=== PATIENT | female | born 1965 | race American Indian/Alaskan Native ===

== ENCOUNTER 2021-08-11 10:15 | Outpatient (CLI) | payer OTHER ==
--- NOTE | 2021-08-11 11:31 | XRay Report ---
BILATERAL KNEES HISTORY: Pain. COMPARISON: None. TECHNIQUE: 3 views of both knees were obtained. FINDINGS: Bones: No acute fracture or dislocation. Moderate osteoarthritic change within the left medial kyung rtment. Moderate to severe tricompartmental osteoarthritic changes within the right knee, worse withi n the medial compartment. Soft tissues: No significant abnormality. Additional findings: None. IMPRESSION: No evidence of acute osseous injury. Moderate to severe tricompartmental osteoarthritic changes within the right knee, worse within the me dial compartment. Moderate medial compartment osteoarthritic change within the left knee. Signer Name: Carmelo Briceno MD Signed: 08/11/2021 11:26 AM Workstation Name: [id number]
--- NOTE | 2021-08-11 11:43 | XRay Report ---
BILATERAL HANDS HISTORY: Bilateral hand pain. COMPARISON: None. TECHNIQUE: 3 views of both hands were obtained. FINDINGS: Bones: No fracture or dislocation. Moderate osteoarthritic changes, primarily at the first interphal angeal joints bilaterally. Joint spaces: Maintained. Soft tissues: No significant abnormality. Additional findings: None. IMPRESSION: No evidence of acute osseous injury. Moderate osteoarthritic changes, primarily at the first interphalangeal joints bilaterally. Signer Name: Carmelo Briceno MD Signed: 08/11/2021 11:38 AM Workstation Name: [id number]
== END 2021-08-11 10:16 | disposition home or self-care (01) ==
LOC: XRAY 10:15
PROVIDERS: ATTEND Internal Medicine
DX: M19.042 Primary osteoarthritis, left hand (principal); M19.041 Primary osteoarthritis, right hand; M17.0 Bilateral primary osteoarthritis of knee

== ENCOUNTER 2021-11-11 23:39 | Emergency (ER) | payer SELFPAY ==
--- NOTE | 2021-11-12 04:22 | XRay Report ---
CHEST 2 VIEWS INDICATION / CLINICAL INFORMATION: Chest Pain. COMPARISON: None available. FINDINGS: SUPPORT DEVICES: None. HEART / MEDIASTINUM: No significant abnormality. LUNGS / PLEURA: No significant pulmonary or pleural abnormality. No pneumothorax. ADDITIONAL FINDINGS: No significant additional findings. IMPRESSION: 1. No active cardiopulmonary disease. Signer Name: Serge Montejo II, MD Signed: 11/12/2021 4:17 AM Workstation Name: [id number]
[2021-11-12] MEDS ORDERED: cloNIDine 0.2 MG TAB PO ONE (04:31)
[2021-11-12] MEDS ORDERED: oxyCODONE /ACETAMINOPHEN 5-325MG TAB PO ONE (04:34)
[2021-11-12 04:36] LABS: Basophils # (Auto) 0.1 K/mm3 (0.0-0.1); Basophils % (Auto) 1.1 % (0.0-1.8); Eosinophils # (Auto) 0.2 K/mm3 (0.0-0.4); Eosinophils % (Auto) 2.5 % (0.0-4.3); Hematocrit 44.9 % (30.3-42.9); Hemoglobin 14.4 gm/dl (10.1-14.3); Lymphocytes # (Auto) 2.5 K/mm3 (1.2-5.4); Lymphocytes % (Auto) 36.2 % (13.4-35.0); Mean Corpuscular HGB Conc 32 % (30-34); Mean Corpuscular Volume 93 fl (79-97); Monocytes # (Auto) 0.8 K/mm3 (0.0-0.8); Monocytes % (Auto) 11.8 % (0.0-7.3); Platelet Count 305 K/mm3 (140-440); Red Blood Count 4.82 M/mm3 (3.65-5.03); Red Cell Distribution Width 16.4 % (13.2-15.2)
[2021-11-12 04:57] LABS: BUN/Creatinine Ratio 18; Blood Urea Nitrogen 14 mg/dL (7-17); Calcium 9.3 mg/dL (8.4-10.2); Hemolysis Index 2
[2021-11-12 05:15] VITALS: BP 190/91
--- NOTE | 2021-11-12 05:22 | Emergency Department Report ---
ED Chest Pain HPI - General Chief Complaint: Neck Pain/Injury Stated Complaint: RT SIDE NECK/ARM PAIN/TINGLING NUMBNESS Time Seen by Provider: 11/12/21 03:29 Source: patient Mode of arrival: Ambulatory Limitations: No Limitations - History of Present Illness Initial Comments: 56-year-old female with hypertension and elevated BMI presents emerge department complaining of having right-sided arm pain with tingling up and down on the radiates across to the neck and comes down to the upper chest region. She reports no exertional dyspnea, no hemoptysis no hematuria hematochezia, no palpitations, no fever, chills, sweats. No headache. Blood pressure was found to be elevated in the 200s over the 100s. She reports no vomiting, no diarrhea, no loss of alcohol of bowel bladder. No issues with grasping or gripping with the right upper extremity -: Gradual Pain Radiation: none Severity: mild Severity scale (0 -10): 9 Quality: other (Tingling) Consistency: constant Improves With: nothing Worsens With: movement (Movement of neck and arms), other re: nausea - Related Data Previous Rx's Medication Instructions Recorded Last Taken Type Amlodipine Besylate [Norvasc] 5 mg PO DAILY #30 11/12/21 Unknown Rx Ketorolac [Toradol] 10 mg PO Q6H PRN #15 tablet 11/12/21 Unknown Rx methOCARBAMOL [Robaxin] 750 mg PO Q8H PRN #21 tablet 11/12/21 Unknown Rx Allergies Allergy/AdvReac Type Severity Reaction Status Date / Time No Known Allergies Allergy Verified 11/12/21 03:46 Heart Score - HEART Score History: Slightly suspicious EKG: Normal Age: 45-65 Risk factors: 1-2 risk factors Troponin: < normal limit HEART Score: 2 - EKG Read Time Time EKG Completed: 05:16 EKG Read Time: 05:18 ED Review of Systems ROS: Stated complaint: RT SIDE NECK/ARM PAIN/TINGLING NUMBNESS Other details as noted in HPI Comment: All other systems reviewed and negative ED Past Medical Hx - Medications Home Medications: Home Medications Medication Instructions Recorded Confirmed Last Taken Type Amlodipine Besylate [Norvasc] 5 mg PO DAILY #30 11/12/21 Unknown Rx Ketorolac [Toradol] 10 mg PO Q6H PRN #15 tablet 11/12/21 Unknown Rx methOCARBAMOL [Robaxin] 750 mg PO Q8H PRN #21 tablet 11/12/21 Unknown Rx ED Physical Exam - General Limitations: No Limitations General appearance: alert, in no apparent distress - Head Head exam: Present: atraumatic, normocephalic - Eye Eye exam: Present: normal appearance, PERRL Pupils: Present: normal accommodation - ENT ENT exam: Present: mucous membranes moist, TM's normal bilaterally - Neck Neck exam: Present: normal inspection, tenderness (Tenderness in the right trapezius region with some spasm noted. Full range of motion. Spurling's test is negative.), full ROM - Respiratory Respiratory exam: Present: normal lung sounds bilaterally. Absent: respiratory distress - Cardiovascular Cardiovascular Exam: Present: regular rate, normal rhythm. Absent: systolic murmur, diastolic murmur, rubs, gallop - GI/Abdominal GI/Abdominal exam: Present: soft, normal bowel sounds - Extremities Exam Extremities exam: Present: normal inspection, full ROM (1124 range of motion pulses 2+ normal sensation pulses 2+ cap refills are brisk DTRs are intact.), normal capillary refill - Back Exam Back exam: Present: normal inspection. Absent: CVA tenderness (R), CVA tenderness (L) - Neurological Exam Neurological exam: Present: alert, oriented X3, CN II-XII intact, normal gait, reflexes normal - Psychiatric Psychiatric exam: Present: normal affect, normal mood. Absent: flat affect, manic, homicidal ideation, suicidal ideation - Skin Skin exam: Present: warm, dry, intact, normal color. Absent: rash ED Course Vital Signs 11/11/21 11/12/21 11/12/21 23:44 04:10 05:13 Temperature 98.4 F Pulse Rate 96 H 86 83 Respiratory 16 16 Rate Blood Pressure 213/119 218/123 190/91 O2 Sat by Pulse 95 97 Oximetry SASCHA score - Sascha Score Age > 65: (0) No Aspirin use within the Past 7 Days: (0) No 3 or more CAD Risk Factors: (0) No 2 or more Angina events in past 24 hrs: (0) No Known CAD with more than 50% Stenosis: (0) No Elevated Cardiac Markers: (0) No ST Deviation Greater than 0.5mm: (0) No SASCHA Score: 0 ED Medical Decision Making - Lab Data Result diagrams: 11/12/21 04:18 11/12/21 04:18 - EKG Data EKG shows normal: sinus rhythm Rate: normal - EKG Data Interpretation: normal EKG 11/12/21 05:22 Sinus rhythm 70 no J-point elevation no ST segment depression no ventricular arrhythmia EKG time is 516 - Radiology Data Radiology results: report reviewed [facility] [address] [place] [address] XRay Report Signed Patient: DELILAH MARAVILLA MR#: [id number] : 1965 Acct:[id number] Age/Sex: 56 / F ADM Date: 11/11/21 Loc: ED Attending Dr: Ordering Physician: CIARA ESTEBAN Date of Service: 11/12/21 Procedure(s): XR chest routine 2V Accession Number(s): [id number] cc: CIARA ESTEBAN Fluoro Time In Minutes: CHEST 2 VIEWS INDICATION / CLINICAL INFORMATION: Chest Pain. COMPARISON: None available. FINDINGS: SUPPORT DEVICES: None. HEART / MEDIASTINUM: No significant abnormality. LUNGS / PLEURA: No significant pulmonary or pleural abnormality. No pneumothorax. ADDITIONAL FINDINGS: No significant additional findings. IMPRESSION: 1. No active cardiopulmonary disease. Signer Name: Delaney Booth II, MD Signed: 11/12/2021 4:17 AM Workstation Name: [id number] Transcribed By: VINCENT Dictated By: DELANEY BOOTH II, MD Electronically Authenticated By: DELANEY BOOTH II, MD Signed Date/Time: 11/12/21416 DD/ 5 TD/TT: Print Cancel - Medical Decision Making This patient presents with chest pain that is very unlikely angina or acute coronary syndrome. The emergency department evaluation has not identified any cause for suspicion that this chest pain has a cardiac etiology. Based on their history, EKG (which showed no evidence of ischemia or infarction) and imaging, in addition to the patient's physical exam, I see no evidence at this time for a malignant etiology for the patient's chest pain. There is no acute evidence for pulmonary embolus, acute myocardial infarction, pneumothorax, Boerhaeve syndrome, cardiac tamponade, thoracic artery dissection, or any other emergent cardiac, pulmonary or aortic pathology. Given the low pre-test probability for cardiac etiology of chest pain and the absence of any sign of ischemia or infarction, discharge for outpatient follow-up and further evaluation is reasonable. I have explained to the patient that even though a cardiac problem is very unlikely, follow-up and further testing is required to reduce further the alre trent small uncertainty that exists. Other life-threatening diagnoses have been considered. The patient understands the need to return immediately if their symptoms worsen or they develop any new symptoms, and not to engage in any significant exertional activity until follow-up is obtained. Presents to the emergency department complaining of high blood pressure. Patient is otherwise asymptomatic without confusion, chest pain, hematuria, or SOB. BP today is 219/124 and improved to 190/191 urrently on medication Doubt CV, AMI, heart failure, renal infarction or failure or other end organ damage. Disposition:Discussed with patient their elevated blood pressure and need for close outpatient management of their hypertension. Will provide a prescription for the patients previous antihypertensive medication and arrange for the patient to follow up in a primary care clinic Disposition: Discussed with patient their elevated blood pressure and need for close outpatient management of their hypertension. Will provide a prescription for amlodipine 5mg PO daily and arrange for the patient to follow up in a primary care clinic Critical care attestation.: If time is entered above; I have spent that time in minutes in the direct care of this critically ill patient, excluding procedure time. ED Disposition Clinical Impression: Neck pain, Chest pain, Neuropathy of right upper extremity, Hypertension Disposition: 01 HOME / SELF CARE / HOMELESS Is pt being admited?: No Does the pt Need Aspirin: No Condition: Stable Instructions: Nonspecific Chest Pain, Adult, Peripheral Neuropathy, Hypertension, Adult, [id number], Preventing Hypertension, Managing Your Hypertension, Hypertension (ED) Additional Instructions: He has been started on a low-dose blood pressure medication to help start the control process of your hypertension. This medication along with all or most likely not completely normalize your blood pressure it is imperative you follow- up with the cardiology or primary care provider to further manage this hypertensive issue Prescriptions: Amlodipine Besylate [Norvasc] 5 mg PO DAILY #30 methOCARBAMOL [Robaxin] 750 mg PO Q8H PRN #21 tablet PRN Reason: Spasms Ketorolac [Toradol] 10 mg PO Q6H PRN #15 tablet PRN Reason: Pain Referrals: ISADORA ATWOOD MD [Primary Care Provider] - 3-5 Days CIARAN CONTRERAS MD [Staff Physician] - 3-5 Days PILAR CONTRERAS MD [Staff Physician] - 3-5 Days MITCHELL CONTRERAS MD [Staff Physician] - 3-5 Days
--- NOTE | 2021-11-13 09:16 | Electrocardiograph Report ---
[facility] Test Date: 2021-11-12 Test Time: 05:16:55 Pat Name: DELILAH MARAVILLA Department: Room: Gender: F Surgical Scheduler: ULISSES : 1965 Requested By: DARSHANA WINKLER Order Number: [id number] Reading MD: Ignacio Myers Measurements Intervals [place] Rate: 70 P: 57 OR: 189 QRS: 49 QRSD: 81 T: 16 QT: 373 QTc: 402 Interpretive Statements Sinus rhythm No previous ECG available for comparison Electronically Signed On 11-13-2021 9:15:41 EST by Ignacio Myers
== END 2021-11-12 06:02 | disposition home or self-care (01) ==
LOC: ED 23:39
DX: G56.91 Unspecified mononeuropathy of right upper limb (principal); R07.9 Chest pain, unspecified; M54.9 Dorsalgia, unspecified; I10 Essential (primary) hypertension
CPT/HCPCS: 36415; 71046; 80048; 84484; 85025; 93005; 99284